=== PATIENT | male | born 1945 | race Caucasian/White ===

== ENCOUNTER 2016-09-12 11:47 | Outpatient (CLI) ==
[2016-02-09 16:03] VITALS: BMI 26.9
[2016-09-12 13:23] LABS: BILIRUBIN,URINE Negative (NEGATIVE); KETONES,URINE Trace (NEGATIVE); LEUKOCYTE ESTERASE ,URINE 3+ (NEGATIVE); NITRITE,URINE Positive (NEGATIVE); PH,URINE >=9.0 (5-9); PROTEIN,URINE 2+ (NEGATIVE); URINE, BLOOD 2+ (NEGATIVE)
[2016-09-12 13:28] LABS: ADD URINE MICROSCOPIC YES
[2016-09-12 13:44] LABS: BACTERIA,URINE 2+ (NOT PRESENT)
== END 2016-09-12 11:48 | disposition home or self-care (01) ==
LOC: LAB 11:47
PROVIDERS: ATTEND General Practice
DX: R30.0 Dysuria (principal)
CPT/HCPCS: 81001; 87086

== ENCOUNTER 2016-09-22 10:15 | Outpatient (CLI) ==
[2016-02-09 16:03] VITALS: BMI 26.9
[2016-09-22 12:59] LABS: BILIRUBIN,URINE Negative (NEGATIVE); KETONES,URINE Negative (NEGATIVE); LEUKOCYTE ESTERASE ,URINE Trace (NEGATIVE); NITRITE,URINE Negative (NEGATIVE); PH,URINE 5.5 (5-9); PROTEIN,URINE Negative (NEGATIVE); URINE, BLOOD Negative (NEGATIVE)
[2016-09-22 13:11] LABS: ADD URINE MICROSCOPIC YES
== END 2016-09-22 10:16 | disposition home or self-care (01) ==
LOC: LAB 10:15
PROVIDERS: ATTEND General Practice
DX: N39.0 Urinary tract infection, site not specified (principal)
CPT/HCPCS: 81001

== ENCOUNTER 2016-09-26 13:35 | Outpatient (CLI) ==
[2016-02-09 16:03] VITALS: BMI 26.9
[2016-09-26 13:54] LABS: ADD URINE MICROSCOPIC NO; BILIRUBIN,URINE Negative (NEGATIVE); KETONES,URINE Negative (NEGATIVE); LEUKOCYTE ESTERASE ,URINE Negative (NEGATIVE); NITRITE,URINE Negative (NEGATIVE); PH,URINE 5.5 (5-9); PROTEIN,URINE Negative (NEGATIVE); URINE, BLOOD Negative (NEGATIVE)
== END 2016-09-26 13:36 | disposition home or self-care (01) ==
LOC: LAB 13:35
PROVIDERS: ATTEND General Practice
DX: N39.0 Urinary tract infection, site not specified (principal)
CPT/HCPCS: 81001

== ENCOUNTER 2016-09-29 14:15 | Outpatient (CLI) ==
[2016-02-09 16:03] VITALS: BMI 26.9
--- NOTE | 2016-09-29 15:59 | DI ---
Exam: Five x-rays of the lumbar spine. Comparison: 02/09/2016. Reason for exam: Low back pain. FINDINGS: No acute fracture or listhesis. There is a similar appearing compression deformity in th e T11 vertebral body. The lumbar vertebral body heights and intervertebral body disc space heights are not significantly changed from the previous exam. Moderate degenerative disease is seen with in tervertebral body disc space height narrowing. Facet hypertrophy and osteophyte formation. Atherosclerotic disease is seen within the abdominal aorta. There is a normal appearing lumbar lordotic curve. Impression: 1. Similar appearing compression deformity in the T11 vertebral body. 2. No new fracture or listhesis with moderate multilevel degenerative disease
== END 2016-09-29 14:16 | disposition home or self-care (01) ==
LOC: RAD 14:15
PROVIDERS: ATTEND General Practice
DX: M54.5 Low back pain (principal)

== ENCOUNTER 2016-10-10 14:18 | Outpatient (CLI) ==
[2016-02-09 16:03] VITALS: BMI 26.9
[2016-10-10 14:30] LABS: BASOPHILS # (AUTO) 0.1 K/uL (0-0.2); BASOPHILS % (AUTO) 1.3 % (0.0-3.0); EOSINOPHILS # (AUTO) 0.4 K/ul (0.0-0.7); EOSINOPHILS % (AUTO) 4.7 % (0.0-7.0); HEMATOCRIT 43.4 % (42.0-52.0); HEMOGLOBIN 14.7 g/dl (14.0-18.0); IMMATURE GRANULOCYTE % (AUTO) 0.3 % (0.0-5.0); LYMPHOCYTES # (AUTO) 2.8 K/uL (0.60-3.4); LYMPHOCYTES % (AUTO) 36.3 (10.0-50.0); MEAN CORPUSCULAR HEMOGLOBIN 33.5 pg (27.0-31.0); MEAN CORPUSCULAR HGB CONC 33.9 (31.8-35.4); MEAN CORPUSCULAR VOLUME 98.9 fl (80.0-94.0); MONOCYTES # (AUTO) 0.6 K/uL (0.4-2.0); MONOCYTES % (AUTO) 8.1 (0-10); NEUTROPHILS # (AUTO) 3.8 K/ul (2.0-6.9); NEUTROPHILS % (AUTO) 49.3; PLATELET COUNT 150 10^3/uL (140-440); RED BLOOD COUNT 4.39 10^6/ul (4.70-6.10); WHITE BLOOD COUNT 7.74 K/ul (4.2-10.2)
[2016-10-10 14:43] LABS: BILIRUBIN,URINE Negative (NEGATIVE); KETONES,URINE Negative (NEGATIVE); LEUKOCYTE ESTERASE ,URINE Negative (NEGATIVE); NITRITE,URINE Negative (NEGATIVE); PH,URINE 5.5 (5-9); PROTEIN,URINE Negative (NEGATIVE); URINE, BLOOD Negative (NEGATIVE)
[2016-10-10 14:44] LABS: ADD URINE MICROSCOPIC NO
[2016-10-10 15:27] LABS: ALBUMIN 3.5 g/dL (3.4-5.0); ALBUMIN/GLOBULIN RATIO 0.8; ANION GAP 17.3; BILIRUBIN,TOTAL 0.48 mg/dL (0.00-1.20); BUN/CREATININE RATIO 21.36; CHOL/HDL RATIO 5.4 (4.5-6.4); CREATININE 1.17 mg/dL (0.60-1.10); POTASSIUM 4.3 mmol/L (3.5-5.1); TOTAL PROTEIN 7.9 g/dL (5.8-8.1)
[2016-10-11 10:37] LABS: % FREE PSA 13.5 % (.); PSA, FREE 0.92 ng/mL
== END 2016-10-10 14:19 | disposition home or self-care (01) ==
LOC: LAB 14:18
PROVIDERS: ATTEND General Practice
DX: M89.9 Disorder of bone, unspecified (principal); D51.9 Vitamin B12 deficiency anemia, unspecified; E55.9 Vitamin D deficiency, unspecified; I10 Essential (primary) hypertension; I25.119 Atherosclerotic heart disease of native coronary artery with unspecified angina pectoris; R31.29 Other microscopic hematuria; R97.20 Elevated prostate specific antigen [PSA]
CPT/HCPCS: 36415; 80053; 80061; 81001; 82306; 84153; 85025

== ENCOUNTER 2017-01-30 12:53 | Outpatient (CLI) ==
[2016-02-09 16:03] VITALS: BMI 26.9
[2017-01-30 13:17] LABS: ALBUMIN 3.3 g/dL (3.4-5.0); ALBUMIN/GLOBULIN RATIO 0.79; ANION GAP 13.9; BILIRUBIN,TOTAL 0.5 mg/dL (0.00-1.20); BUN/CREATININE RATIO 17.09; CALCIUM 9.6 mg/dL (8.2-10.2); CHOL/HDL RATIO 4.6 (4.5-6.4); CREATININE 1.17 mg/dL (0.60-1.10); POTASSIUM 3.9 mmol/L (3.5-5.1); TOTAL PROTEIN 7.5 g/dL (5.8-8.1)
[2017-01-30 13:35] LABS: BILIRUBIN,URINE 1+ (NEGATIVE); KETONES,URINE Trace (NEGATIVE); LEUKOCYTE ESTERASE ,URINE Negative (NEGATIVE); NITRITE,URINE Negative (NEGATIVE); PH,URINE 5.5 (5-9); PROTEIN,URINE Negative (NEGATIVE); URINE, BLOOD Negative (NEGATIVE)
[2017-01-30 13:37] LABS: ADD URINE MICROSCOPIC NO
[2017-01-30 15:06] LABS: BASOPHILS # (AUTO) 0.1 K/uL (0-0.2); EOSINOPHILS # (AUTO) 0.5 K/ul (0.0-0.7); EOSINOPHILS % (AUTO) 5.2 % (0.0-7.0); HEMATOCRIT 44.2 % (42.0-52.0); HEMOGLOBIN 14.7 g/dl (14.0-18.0); IMMATURE GRANULOCYTE % (AUTO) 0.2 % (0.0-5.0); LYMPHOCYTES # (AUTO) 2.9 K/uL (0.60-3.4); MEAN CORPUSCULAR HEMOGLOBIN 32.5 pg (27.0-31.0); MEAN CORPUSCULAR HGB CONC 33.3 (31.8-35.4); MEAN CORPUSCULAR VOLUME 97.6 fl (80.0-94.0); MONOCYTES # (AUTO) 0.9 K/uL (0.4-2.0); NEUTROPHILS # (AUTO) 5.1 K/ul (2.0-6.9); NEUTROPHILS % (AUTO) 53.6; PLATELET COUNT 152 10^3/uL (140-440); RED BLOOD COUNT 4.53 10^6/ul (4.70-6.10); WHITE BLOOD COUNT 9.46 K/ul (4.2-10.2)
== END 2017-01-30 12:54 | disposition home or self-care (01) ==
LOC: LAB 12:53
PROVIDERS: ATTEND General Practice
DX: E55.9 Vitamin D deficiency, unspecified (principal); I10 Essential (primary) hypertension; I25.119 Atherosclerotic heart disease of native coronary artery with unspecified angina pectoris; R97.20 Elevated prostate specific antigen [PSA]; N20.0 Calculus of kidney; R31.29 Other microscopic hematuria; I73.9 Peripheral vascular disease, unspecified; D51.9 Vitamin B12 deficiency anemia, unspecified; Z72.0 Tobacco use
CPT/HCPCS: 36415; 80053; 80061; 81001; 85025

== ENCOUNTER 2017-04-24 10:50 | Outpatient (CLI) ==
[2016-02-09 16:03] VITALS: BMI 26.9
== END 2017-04-24 10:51 | disposition home or self-care (01) ==
LOC: FCC-LAB 10:50
PROVIDERS: ATTEND General Practice
DX: D51.9 Vitamin B12 deficiency anemia, unspecified (principal); E55.9 Vitamin D deficiency, unspecified; I10 Essential (primary) hypertension; I25.119 Atherosclerotic heart disease of native coronary artery with unspecified angina pectoris; N20.0 Calculus of kidney; R31.29 Other microscopic hematuria; Z79.899 Other long term (current) drug therapy
CPT/HCPCS: 36415; 80053; 80061; 81001; 85025

== ENCOUNTER 2017-07-31 09:28 | Outpatient (CLI) ==
[2016-02-09 16:03] VITALS: BMI 26.9
== END 2017-07-31 09:29 | disposition home or self-care (01) ==
LOC: FCC-LAB 09:28
PROVIDERS: ATTEND General Practice
DX: R73.9 Hyperglycemia, unspecified (principal); I10 Essential (primary) hypertension; R97.20 Elevated prostate specific antigen [PSA]; D51.9 Vitamin B12 deficiency anemia, unspecified; Z87.442 Personal history of urinary calculi; Z79.899 Other long term (current) drug therapy
CPT/HCPCS: 36415; 80053; 80061; 81001; 83036; 83525; 84153; 85025

== ENCOUNTER 2017-10-02 16:10 | Outpatient (CLI) ==
[2016-02-09 16:03] VITALS: BMI 26.9
== END 2017-10-02 16:11 | disposition home or self-care (01) ==
LOC: FCC-LAB 16:10
PROVIDERS: ATTEND General Practice
DX: I25.119 Atherosclerotic heart disease of native coronary artery with unspecified angina pectoris (principal); I10 Essential (primary) hypertension; E55.9 Vitamin D deficiency, unspecified; Z79.899 Other long term (current) drug therapy
CPT/HCPCS: 36415; 80053; 80061; 81001; 83036; 85025

== ENCOUNTER 2017-12-13 16:45 | Observation (INO) | payer OTHER ==
[2017-12-13 17:37] VITALS: BMI 27.7
[2017-12-13] MEDS ORDERED: ATIVAN PO PRN (17:45)
[2017-12-13] MEDS ORDERED: COZAAR PO SCH (18:00)
[2017-12-13] MEDS ORDERED: LOPRESSOR PO SCH (18:00)
--- NOTE | 2017-12-13 19:33 | CT ---
EXAM: CT scan brain without contrast HISTORY: Left arm numbness COMPARISON: None. FINDINGS: Contiguous axial images obtained from the skull base to the convexities without contrast u tilizing 5-mm collimation. Sagittal and coronal reconstructions were imaged and reviewed.. The vent ricles and CSF spaces are prominent compatible with age appropriate atrophy. There is moderate periv entricular hypodensity noted compatible with chronic microvascular disease. Atherosclerotic changes are seen involving the bilateral vertebral and cavernous internal carotid arteries. Visualized paran brenda sinuses and mastoid air cells are clear. IMPRESSION: Age appropriate atrophy with chronic microvascular disease. ASVD.
[2017-12-13] MEDS ORDERED: LOVENOX SUBCUT SCH (21:00)
--- NOTE | 2017-12-14 06:05 | DI ---
EXAM: Chest two views HISTORY: Upper extremity weakness FINDINGS: Normal cardiac and mediastinal contours. Normal pulmonary vasculature. Lungs are clear. Atherosclerotic calcification of the aorta. No significant abnormality of the bony thorax. IMPRESSION: No acute cardiopulmonary disease.
[2017-12-14] MEDS: ATIVAN PO PRN ×3 (10:00→21:31)
[2017-12-14] MEDS: COZAAR PO SCH ×3 (10:01→21:30)
[2017-12-14] MEDS: LOPRESSOR PO SCH ×3 (10:01→21:31)
[2017-12-14] MEDS: NON-FORMULARY MEDICATION (Cyanocobalamin (Vitamin B-12) [Vitamin B12] 5,000 MCG) SL SCH (10:02)
[2017-12-14] MEDS: COLACE PO SCH (10:12)
--- NOTE | 2017-12-14 10:19 | MRI ---
EXAM: MRA brain without IV contrast. DATE: 14 December 2017. HISTORY: Left upper extremity weakness. TECHNIQUE: 3-D [id number] sequence centered on the tulalip Haynes was performed without IV contra st, using 1.2 Stefany magnet. 3-D MIP reconstruction images of the intracranial arteries were produced in addition to the axial source images. NOTE: Degree of arterial vascular stenosis is determined using NASCET criteria. COMPARISON: MRI brain 14 December 2017. FINDINGS: Neither vertebral artery is dominant. Basilar artery is normal in diameter, without focal stenosis, dissection or aneurysm. Each superior cerebellar artery is intact. Right P1 segment is v isible x 5 mm, beyond which the vessel is not clearly identified. origin of the right CLASSIFIER TENDER alo ing from the right supraclinoid ICA is evident. The left PCOM is not visible. The ACOM is not visib le. The left A1 segment gives off a branch vessel at the expected location of the ACOM. This branch follows the course of the right and left P2 segments. Symmetric bilateral blood flow is evident wit hin the anterior, middle, and posterior cerebral artery distributions peripherally. No intracranial aneurysm or AVM is detected. Both petrous ICAs are normal. Right cavernous ICA is normal. Left cave rnous ICA C2/C1 segment junction narrows to 1.9 mm diameter over a 2 mm length. IMPRESSIONS: 1. Atretic ACOM and left PCOM. 2. origin of the right CLASSIFIER TENDER. 3. No intracranial aneurysm or AVM. 4. Basilar and vertebral arteries are normal. 5. Bilateral petrous and right cavernous ICA are normal. 6. Left cavernous ICA short segment mild stenosis (< 50%) ve flow artifact.
--- NOTE | 2017-12-14 10:35 | MRI ---
EXAM: MRI brain without IV contrast. DATE: 14 December 2017. HISTORY: Left upper extremity weakness. Inability to control motion. TECHNIQUE: Sagittal T1W, axial T2W, axial FLAIR, axial T1W, axial DWI, and coronal T2W GRE sequences of the brain were obtained using 1.2 Stefany magnet. No IV contrast. COMPARISON: MRA brain [address] head 14 December 2017. FINDINGS: The ventricles, cisterns, and subarachnoid spaces are enlarged due to involutional change No midline shift, mass effect or abnormal extra-axial fluid collection is apparent. Subcentimeter a nd larger DWI bright foci scattered within the posterior aspect right temporal lobe, right occipital lobe, right frontal lobe and parietal lobe primarily affects the cortex; however, the right frontopar ietal centrum semiovale is also affected. Several 67 mm in length x 2 mm diameter foci in bilateral cerebellum are suspicious for old infarcts. No acute hemorrhage or neoplasm is identified. Moderate -to-large confluent rim of T2W/FLAIR hyperintensity is observed in the white matter abutting each lat eral ventricle. Multiple other subcentimeter and larger T2W/FLAIR bright foci are observed in the co asuncion radiata, centrum semiovale and subcortical white matter bilaterally. Several areas of T2W/FLAIR hyperintensity within the cortex of the right occipital lobe corresponds with an old infarct. The g ray - white matter differentiation is normal. The 7th/8th cranial nerve complexes, cerebellopontine angles, brainstem, and visible cervical spinal cord are normal. There is no cerebellar tonsillar ect opia. The pituitary gland is small in size, with CSF filling part of the pituitary fossa. Corpus ca llosum is normal in size and configuration. Vertebrobasilar arterial system is tortuous. Flow voids are present in the major intracranial arteries and in the dural venous sinuses. No aneurysm, AVM or dural venous sinus thrombosis is apparent. Appearance of the lens of each eye suggests prior catara ct surgery. No other orbit abnormality is identified. The mastoid air cells are unremarkable. Mode rate sized retention cysts are present at each maxillary sinus floor. There is no acute sinusitis. No neck mass or lymphadenopathy is detected. No calvarial neoplasm or acute fracture is evident. T2 W/T1W intermediate signal, 11 mm and 14 mm foci are seen in the superficial lobe right parotid gland. IMPRESSIONS: 1. Acute, nonhemorrhagic infarcts in the right MCA distribution. No current midline shift or hernia tion. 2. Marked cerebral and moderate brainstem leukomalacia - - DDX: Small vessel disease or chronic hyp ertensive encephalopathy is likely. 3. No acute hemorrhage, intra-axial neoplasm or hydrocephalus. 4. Probable old right occipital lobe and bilateral cerebellar infarcts. 5. Moderate cerebral and mild cerebellar atrophy. 6. 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 7. Bilateral maxillary sinus moderate retention cysts. 8. Right parotid gland superficial lobe nodules (x2). DDX: Reactive lymph nodes, benign or maligna nt neoplasm. Recommend correlation with physical exam and short interval follow up with ultrasound o r CT scan to assess for resolution. Critical result: Report called cristobal nurse at 1026 hrs, 14 December 2017.
--- NOTE | 2017-12-14 12:51 | US ---
Exam: Carotid Doppler ultrasound with color flow, grayscale and spectral doppler HISTORY: Transit ischemic attack FINDINGS RIGHT: Calcified plaquing at the common carotid artery and carotid bulb. The plaque burden is 58% estimated .The peak systolic velocities in the right internal and common carotid are 230 and 30 cm/sec respecti vely With a ratio of 7.4. Corresponding diastolic velocities are 40 and 10 cm/sec respectively. Ve rtebral flow is antegrade. IMPRESSION RIGHT: Severe (greater than 70%) stenosis by velocities. The plaque estimate by kathleen scale is 58%. Cross-s ectional imaging may be needed for clarification secondary to heavy calcified plaquing. FINDINGS LEFT: Heavy calcified plaquing at the distal common carotid, carotid bulb and proximal internal carotid art duy. The plaque burden approaching 50% by kathleen scale.The peak systolic velocities in the left college intern al and common carotid are 100 and 60 cm/sec respectively with a ratio of 1.6. Corresponding diastoli c velocities are 30 and 10 cm/sec respectively. Vertebral flow is antegrade. IMPRESSION LEFT: Calcified plaquing plaquing with mild (< 50%) narrowing by velocities.
[2017-12-14] MEDS: PYRIDOXINE HCL PO SCH (14:05)
[2017-12-14] MEDS: VITAMIN B-12 IM SCH (14:06)
[2017-12-14] MEDS: THIAMINE IM SCH (14:07)
[2017-12-14] MEDS: PLAVIX PO SCH (17:32)
[2017-12-14] MEDS: CRESTOR PO SCH ×2 (17:33→21:29)
[2017-12-14] MEDS ORDERED: LOVENOX SUBCUT SCH (21:00)
[2017-12-15] MEDS: COZAAR PO SCH ×2 (06:15→09:49)
[2017-12-15] MEDS: LOPRESSOR PO SCH ×2 (06:16→09:49)
[2017-12-15] MEDS: PLAVIX PO SCH (09:48)
[2017-12-15] MEDS: PYRIDOXINE HCL PO SCH (09:48)
[2017-12-15] MEDS: ATIVAN PO PRN (09:49)
[2017-12-15] MEDS: VITAMIN B-12 IM SCH (09:51)
[2017-12-15] MEDS: THIAMINE IM SCH (09:58)
[2017-12-15] MEDS: NON-FORMULARY MEDICATION (Cyanocobalamin (Vitamin B-12) [Vitamin B12] 5,000 MCG) SL SCH (10:17)
[2017-12-15] MEDS: COLACE PO SCH (11:20)
[2017-12-15 13:33] VITALS: BP 110/68; TEMP 98.1
--- NOTE | 2017-12-17 10:16 | HP ---
DATE OF SERVICE: 12/13/17 CHIEF COMPLAINT: Weakness of the left hand, plus upper extremity and dropping objects, which he never had before. His left hand and fingers doesn't follow what he wanted the hands to do. HISTORY OF PRESENT ILLNESS: The patient had experiences the day before presenting to the office on 12/13/17. He claimed that he never had this experience before. While he was holding his cigarette in his left hand and the cigarette dropped without him knowing. He also noted that his hands or fingers doesn't follow what he wants for the hand to do. He was concerned when he presented to the office. He denied any headaches or any visual disturbances. Hand proofer black and white had some slight weakness in the left hand. The patient was then admitted to the hospital for further examination and testing. PAST PERSONAL HISTORY: The patient had a severe lumbar pain requiring admission two years ago. The patient had compression fracture worsening at T11, as well as T10. The patient had severe weakness that he was not able to ambulate on his own two years ago. The patient was consuming alcohol every day and had a significant B complex vitamin deficiency. The patient had herpes zoster right side of the abdomen two years ago, 02/09/2016. 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 Previous tonsillectomy. FAMILY HISTORY: Father had colon carcinoma, mother had CVA and sisters are healthy. SOCIAL HISTORY: The patient is and resides alone and is self sufficient. His children are grown and the eldest son after a cholecystectomy the next day. He smokes about a pack and a half of cigarettes a day and had stopped since two years ago. MEDICATIONS: Prior to this admission Docusate sodium one daily 100 mg Metoprolol Tartrate 50 mg twice a day Losartan 25 mg twice a day Vitamin B12 sublingual 5,000 mcg daily Lorazepam 0.5 mg twice a day as needed Vitamin B12 injection weekly, 1000 mcg ALLERGIES: Vitamin D3 and probiotics. REVIEW OF SYSTEMS: CONSTITUTIONAL: The patient has no fever and no chills. No significant change from his previous status, except for slight weakness of the left upper extremity. SECURITY EXPERT: The patient is alert, oriented, but the patient is complaining of loss of control of the fingers and hand and dropping objects from the left hand. This happened yesterday and persisted through today at the time of examination at this office 12/13/2017. He denies any headaches. His gait has always been wide even prior to this. VISUAL: The patient denies any blurred vision, double vision, or loss of vision. AUDITORY: Hearing is decreased, but no pain or drainage. RESPIRATORY: The patient does not have any shortness of breath with minimal exertion, such as going to the bathroom. The patient does cough, but no fever or chills. CARDIOVASCULAR: Denies any chest pain or chest tightness. GASTROINTESTINAL: Denies any nausea, anorexia, dysphagia or abdominal pain. GENITOURINARY: The patient has urgency, but no pain on urination. MUSCULOSKELETAL: The patient has no significant joint pains, but has some problems with the fingers, such as the patient is not able to control. ENDOCRINE: Negative. INTEGUMENT: No rash and no pruritus. No ecchymosis. HEMATOLOGIC: Negative for any prolonged bleeding and there are no spontaneous ecchymosis. PSYCHIATRIC: The patient is alert and oriented and affect appears normal. PHYSICAL EXAMINATION: GENERAL: We have 72 year old male admitted to the hospital because of lack of control of the left fingers. The patient was concerned since it never happened to him before. He was holding a cigarette in his left hand and the cigarette slid out. The hand proofer black and white is slightly weaker on the left. The patient was seen initially at the office and then admitted for further diagnosis and treatment. VITAL SIGNS: On admission, temperature 98, pulse 76, blood pressure 176/87 left and 153/82 right, respiratory rate 18, oxygen saturation 96 on room air. 5'10" , 193 pounds and 1.99 ounces. HEAD: Unremarkable. Scalp with no active dermatitis. FACE: Symmetrical and equal with no facial weakness. The patient on the frontal and maxillary sinus areas is negative for pain. EYES: Pupils equal/reactive to light about 3 mm in size. Conjunctivae slightly pale. Sclerae not icteric. MOUTH: Unremarkable. THROAT: No inflammation, tumors or exudate. NECK: No masses. No bruit. No tenderness. No rigidity. CHEST: Essentially symmetrical and equal with good expansion. LUNGS: Breath sounds are diminished in both sides and coarse breath sounds. The patient has rales at the right lower base, lower third. No wheezing. HEART: Audible and regular with good tones. No murmurs. ABDOMEN: Soft with no remarkable tenderness. The liver and spleen are not palpable. There are no palpable masses. Bowel sounds are active. EXTERNAL GENITALIA: Not examined. RECTAL: Not examined. LOWER EXTREMITIES: Essentially symmetrical and equal with no significant edema. The anterior tibials are present. Posteriors are absent. UPPER EXTREMITIES: Symmetrical and equal. ASSESSMENT: 1. LOSS OF MOTOR CONTROL OF LEFT FINGERS AND HAND, PROBABLY CVA, MINIMAL 2. HISTORY OF CORONARY ARTERY DISEASE, STATUS POST MYOCARDIAL INFARCTION, POST CARDIAC CATHETERIZATION AND STENT 3. HISTORY OF HYPERTENSION, CONTROLLED 4. HISTORY OF CHRONIC TOBACCO USE AND ABUSE, PERSISTENT 5. HISTORY OF CHRONIC ALCOHOL USE AND ABUSE, STOPPED TWO YEARS AGO 6. SEVERE B COMPLEX VITAMIN DEFICIENCY SECONDARY TO ALCOHOL, IMPROVED PLAN: 1. CT scan of the head without contrast tonight and CBC, plus CMP and Urinalysis. TIME SPENT: GREATER THAN 65 MINUTES MTDD
--- NOTE | 2017-12-17 11:16 | DS ---
DATE OF SERVICE: 12/15/17 PATIENT IDENTIFICATION/HOSPITAL COURSE: 72-year-old male admitted to the hospital because of lack of dexterity and ability to control the movement of the fingers persistence since 12/12/17. The patient's physical examination was unremarkable except for the lack of control of the fingers and some slight weakness of the handgrip. The patient is alert, oriented times four without any visual disturbances and no headaches, no ataxia. This patient always had a wider gait, probably for balance. There is significant improvement from two to three years ago. The patient's CT scan of the head done 12/13/17 showed no acute intracranial injuries. Chest x-ray showed no acute cardiopulmonary processes. Vascular status consisting of Doppler ultrasound of the carotid was less than 50% bilaterally of the internal carotid. MRI of the brain 12/14/17 showed acute nonhemorrhagic infarcts in the right middle cerebral artery distribution. No midline shift. Marked cerebral and moderate brainstem leukomalacia. Small vessel disease or chronic hypertensive encephalopathy. No acute hemorrhages. Probable old right occipital lobe and bilateral cerebellar infarcts, bilateral maxillary sinus retention cysts and partial empty sella. The MRA - no significant findings. The patient's condition is stable and the patient was placed on Plavix 75 mg daily. The patient, while in the hospital, also was given Lovenox 40 mg subcutaneously. He was given a B12 injection 1,000 mcg daily, Vitamin B6 p.o. daily, Vitamin B1 100 mg daily IM and Crestor 20 mg daily. The patient denied any reaction to any of these medications. His general behavior has remained the same. There are no significant changes in the fingers as far as control is concerned. The patient's vital signs at 1:32 p.m. before discharge showed a temperature of 98.1, pulse 66, BP 110/68, respiratory rate 16, oxygen saturation 93 on room air. Pupils are equal and reactive. No tenderness in the frontal or maxillary sinus areas to palpation and/or pressure. He denied any visual disturbances. Lungs have rales at the right lower base. No wheezing. Heart is normal sinus rhythm. This patient will be sent home today, to see me this coming Sunday. His medications will consist of his previous medication plus Crestor 20 mg daily and Plavix 75 mg daily. FINAL DIAGNOSIS: 1. ACUTE NONHEMORRHAGIC INFARCT IN RIGHT MIDDLE CEREBRAL ARTERY DISTRIBUTION. 2. MOTOR DYSFUNCTION OF THE LEFT HAND PERSISTENT. 3. HYPERTENSION CONTROLLED. 4. CHRONIC TOBACCO USE AND ABUSE, PERSISTENT. THE PATIENT IS ADVISED TO STOP SMOKING. 5. BILATERAL INTERNAL CAROTID STENOSIS LESS THAN 50%. 6. PARTIALLY EMPTY SELLA; OLD INFARCT RIGHT OCCIPITAL LOBE AND BILATERAL CEREBELLAR INFARCTS; BILATERAL MAXILLARY SINUS RETENTION CYST. PROGNOSIS: GUARDED. TIME SPENT: GREATER THAN 30 MINUTES MTDD
== END 2017-12-15 16:20 | disposition home or self-care (01) ==
LOC: MEDSURG B 16:45
PROVIDERS: ADMIT General Practice; ATTEND General Practice
DX: I63.511 Cerebral infarction due to unspecified occlusion or stenosis of right middle cerebral artery (principal); I10 Essential (primary) hypertension; I65.23 Occlusion and stenosis of bilateral carotid arteries; G83.24 Monoplegia of upper limb affecting left nondominant side; E53.9 Vitamin B deficiency, unspecified; Z72.0 Tobacco use
CPT/HCPCS: 36415; 80053; 81001; 85025; 87070; 87086; 93005; 93010

== ENCOUNTER 2018-01-01 11:05 | Outpatient (CLI) | END 2018-01-01 11:06 | disposition home or self-care (01) | LOC: RHC-LAB 11:05 | PROVIDERS: ATTEND General Practice | DX: I25.119 Atherosclerotic heart disease of native coronary artery with unspecified angina pectoris (principal); Z79.899 Other long term (current) drug therapy | CPT/HCPCS: 36415; 80053; 80061; 81001; 85025; 87086 ==

== ENCOUNTER 2018-03-26 10:39 | Outpatient (CLI) | END 2018-03-26 10:40 | disposition home or self-care (01) | LOC: RHC-LAB 10:39 | PROVIDERS: ATTEND General Practice | DX: I25.119 Atherosclerotic heart disease of native coronary artery with unspecified angina pectoris (principal); R97.20 Elevated prostate specific antigen [PSA]; I73.9 Peripheral vascular disease, unspecified; E55.9 Vitamin D deficiency, unspecified; E78.5 Hyperlipidemia, unspecified; Z79.899 Other long term (current) drug therapy; Z72.0 Tobacco use; Z78.9 Other specified health status | CPT/HCPCS: 36415; 80053; 80061; 81001; 84153; 85025; 87086 ==

== ENCOUNTER 2018-06-25 09:50 | Outpatient (CLI) | END 2018-06-25 09:51 | disposition home or self-care (01) | LOC: RHC-LAB 09:50 | PROVIDERS: ATTEND General Practice | DX: D51.9 Vitamin B12 deficiency anemia, unspecified (principal); I10 Essential (primary) hypertension; Z79.899 Other long term (current) drug therapy | CPT/HCPCS: 36415; 80053; 80061; 81001; 85025; 87086 ==

== ENCOUNTER 2018-07-02 15:15 | Outpatient (CLI) | END 2018-07-02 15:16 | disposition home or self-care (01) | LOC: RHC-LAB 15:15 | PROVIDERS: ATTEND General Practice | DX: R19.7 Diarrhea, unspecified (principal); Z12.11 Encounter for screening for malignant neoplasm of colon | CPT/HCPCS: 82272 ==